=== PATIENT | female | born 1995 | race Caucasian/White ===

== ENCOUNTER 2022-12-30 12:39 | Emergency (ER) | payer BC ==
[~2022-12-30] VITALS: Ht 167.6 cm; Wt 72.0 kg
[2022-12-30] MEDS ORDERED: INDERAL XL80 MG (12:51)
[2022-12-30 13:38] LABS: BASO% 0.9 % (0-3); EOS% 1.5 % (0-8); HEMATOCRIT 39.3 % (37.0-47.0); HEMOGLOBIN 13.4 g/dl (12.0-16.0); IMMATURE GRANULOCYTES 0.4 % (0.0-5.0); LYMPH% 24.3 % (15-41); MEAN CELL VOLUME 83.8 fL CALC (80.0-100.0); MEAN CORPUSCULAR HGB 28.6 pG CALC (26.0-32.0); MEAN CORPUSCULAR HGB CONC 34.1 g/dL CAL (32.0-36.0); NEUT# 6.1 thou/uL (2.00-7.15); NEUT% 64.9 % (42-76); RED BLOOD COUNT 4.69 mill/uL (4.20-5.60); RED CELL DISTRI WIDTH 11.8 % (11.5-15.5)
[2022-12-30 13:53] LABS: ALBUMIN 4.4 g/dL (3.2-5.0); ALKALINE PHOSPHATASE 131 u/l (38-126); ANION GAP 14 (6-22 (CALC)); BILIRUBIN, TOTAL 0.6 mg/dL (0.02-1.3); BUN 4 mg/dL (7-17); BUN/CREATININE RATIO 7 (12-20 (CALC)); CARBON DIOXIDE 22 mmol/l (22-30); CHLORIDE 103 mmol/l (95-108); CREATININE 0.6 mg/dL (0.5-1.0); GFR FOR AFR.AMER. > 60 ML/MIN (>=60 (CALC)); GFR OTHER RACES > 60 ML/MIN (>=60 (CALC)); POTASSIUM 3.4 mmol/l (3.5-5.1); SGOT/AST 41 u/l (14-36); SODIUM 136 mmol/l (137-146); TOTAL PROTEIN 7.9 g/dL (6.3-8.2)
[2022-12-30 13:59] VITALS: BP 126/87
[2022-12-30 14:30] VITALS: BP 119/82
[2022-12-30 15:00] VITALS: BP 121/85
[2022-12-30 15:13] VITALS: BP 114/78
[2022-12-30] MEDS ORDERED: OMEPRAZOLE DR40 MG PO (15:15)
[2022-12-30 15:16] VITALS: BP 114/78
== END 2022-12-30 15:23 | disposition home or self-care (01) | DRG 392 ==
LOC: ED 12:39
PROVIDERS: Family Medicine
DX: K29.70 Gastritis, unspecified, without bleeding (principal); R53.83 Other fatigue